=== PATIENT | female | born 1975 | race African-American/Black ===

== ENCOUNTER 2019-08-01 13:07 | Inpatient (IN) | payer BC, MEDICAID ==
[~2019-08-01] VITALS: Ht 157.5 cm; Wt 99.8 kg
[2019-08-01] MEDS ORDERED: SODIUM CHLORIDE 0.9% 1,000 ML IV ONE (13:29)
[2019-08-01 14:48] LABS: BASOPHILS % 1.5 % (0.0-2.0); EOSINOPHILS % 1.9 % (0.0-5.0); HEMATOCRIT. 36.5 % (36.0-48.0); HEMOGLOBIN. 11.4 g/dL (12.0-16.0); LYMPHOCYTES % 24.2 % (20.0-50.0); MEAN CORPUSCULAR VOLUME 70.4 fL (81.0-99.0); MONOCYTES % 5.8 % (2.0-8.0); NEUTROPHILS % 66.6 % (40.0-76.0); RED BLOOD CELL COUNT 5.18 mill/uL (4.2-5.4); RED CELL DISTRIBUTION WIDTH 22.2 % (11.6-14.6)
[2019-08-01 14:50] LABS: D-DIMER 0.27 mg/L FEU (<0.50); HCG SCREEN NEGATIVE; PROTHROMBIN TIME 10.7 sec (9.6-11.0)
[2019-08-01 14:54] LABS: ETHANOL BLOOD < 10 mg/dL
[2019-08-01 15:21] LABS: PLATELET 153 x1000/uL (130-400)
[2019-08-01 15:22] LABS: PLATELET ESTIMATE NORMAL
[2019-08-01 15:26] LABS: CHLORIDE 110 mEq/L (98-107)
[2019-08-01 16:05] LABS: CLARITY URINE CLEAR (CLEAR); COLOR URINE YELLOW (YELLOW); KETONES URINE NEGATIVE (NEGATIVE); LEUKOCYTE ESTERASE URINE NEGATIVE (NEGATIVE); NITRITE URINE NEGATIVE (NEGATIVE); OCCULT BLOOD URINE NEGATIVE (NEGATIVE); PROTEIN URINE NEGATIVE (NEGATIVE); SPECIFIC GRAVITY URINE 1.014 (1.005-1.030)
[2019-08-01] MEDS ORDERED: IOHEXOL-300 100 ML BOTTLE ONE (16:11)
[2019-08-01 16:22] LABS: *AMPHETAMINES SCREEN URINE NEGATIVE (NEGATIVE); *BARBITURATES SCREEN URINE NEGATIVE (NEGATIVE); *BENZODIAZEPINES SCREEN URINE NEGATIVE (NEGATIVE); *COCAINE SCREEN URINE NEGATIVE (NEGATIVE); METHADONE URINE SCREEN NEGATIVE (NEGATIVE)
[2019-08-01 16:23] LABS: OPIATES URINE SCREEN NEGATIVE (NEGATIVE); PHENCYCLIDINE URINE SCREEN NEGATIVE (NEGATIVE)
[2019-08-01 16:32] LABS: CANNABINOID URINE SCREEN PRESUMTIVE POSITIVE (NEGATIVE)
[2019-08-01] MEDS ORDERED: METRONIDAZOLE 500 MG PREMIX 100 ML IV ONE (17:30)
[2019-08-01] MEDS ORDERED: CEFTRIAXONE 2 G PREMIX 50 ML IV ONE (17:30)
[2019-08-02] VITALS (7 sets, daily range): BP systolic 120–167; BP diastolic 60–92
[2019-08-02] MEDS ORDERED: MORPHINE SULFATE 2 MG/ML CPJ (NOT FOR IM USE) IV PRN (04:15)
[2019-08-02] MEDS ORDERED: HYDRALAZINE 20MG/ML VIAL IV PRN (04:15)
[2019-08-02] MEDS ORDERED: HYDRALAZINE 10 MG in SODIUM CHLORIDE 0.9% 49.5 ML IV PRN (04:45)
[2019-08-02] MEDS ORDERED: DEXT 5%/0.45% NACL 1000ML 1,000 ML IV SCH (05:30)
[2019-08-02] MEDS: PIPERACILLIN/TAZOBACTAM 3.375 G in DEXT 5% WATER 100 ML IV SCH ×2 (05:54→11:11)
[2019-08-02] MEDS ORDERED: PANTOPRAZOLE SODIUM 40 MG/VIAL IV SCH (06:00)
[2019-08-02] MEDS ORDERED: PIPERACILLIN/TAZOBACTAM 3.375GM/50ML PREMIX IV SCH (06:00)
[2019-08-02] MEDS ORDERED: METOPROLOL TARTRATE 25MG TABLET PO SCH (09:00)
[2019-08-02] MEDS: METOPROLOL TARTRATE 25MG TABLET PO SCH ×2 (09:00→14:21)
[2019-08-02] MEDS ORDERED: INFLUENZA VIRUS VACCINE(AFLURIA) 0.5ML SYR IM ONE (10:00)
== END 2019-08-02 18:18 | disposition home or self-care (01) | DRG 392 ==
LOC: ER 13:07 → CANBEDREQ 16:53 → UNDOADMIN 18:49 → 6EST 18:49 → ENRESERV 19:34 → EDBEDREQ 19:51 → ENRESERV 08-02 00:44
PROVIDERS: ADMIT Internal Medicine; ATTEND Internal Medicine
DX: K57.90 Diverticulosis of intestine, part unspecified, without perforation or abscess without bleeding (principal); I10 Essential (primary) hypertension; E03.9 Hypothyroidism, unspecified; G90.8 Other disorders of autonomic nervous system; D25.9 Leiomyoma of uterus, unspecified; E87.8 Other disorders of electrolyte and fluid balance, not elsewhere classified; I44.0 Atrioventricular block, first degree; Z98.891 History of uterine scar from previous surgery; Z90.49 Acquired absence of other specified parts of digestive tract; Z88.9 Allergy status to unspecified drugs, medicaments and biological substances; Z71.3 Dietary counseling and surveillance
CPT/HCPCS: 36415; 71045; 74177; 80305; 80320; 81003; 84443; 84484; 84703; 85379; 90686; 93005; 96365; 99285; C9113; J0696; J2543; J3490; J7030; J7060; Q9967; G0480